=== PATIENT | female | born 1980 | race Caucasian/White ===

== ENCOUNTER 2025-08-14 17:21 | Emergency (ER) | payer SELFPAY ==
[2025-08-14 17:25] VITALS: BP 148/86; PULSE 73; RESP 14; TEMP 36.7; O2SAT 97; BMI 25.2
--- NOTE | 2025-08-14 17:46 | ED_ITS ---
HPI - General Adult 2 General: Chief complaint: Upper Respiratory Infection Stated complaint: cp, sob, wekaness, n/v/f Time Seen by Provider: 08/14/25 17:40 Source: patient Mode of arrival: ambulatory Limitations: no limitations History of Present Illness: Patient is a 45-year-old female presents to ED today with a complaint of fever, chills, headache, body aches, nausea, vomiting, diarrhea, chest congestion. She states all of her symptoms started after receiving a flu shot. She arrives with normal vital signs. No rash. She is not complaining of neck pain/stiffness. She does tell me all my kids are sick with the same thing . Severity: moderate Relieving factors: none Exacerbating factors: none Associated symptoms: Reports headache(s) and vomiting; Deny chest pain or rash Treatments prior to arrival: none Related Data Allergies Allergy/AdvReac Type Severity Reaction Status Date / Time Sulfa (Sulfonamide Allergy ALGY-Anaphy Verified 08/14/25 17:29 Antibiotics) laxis Review of Systems 2 Const: Reports: fever(s), chills and body aches Eyes: Denies: change in vision, blurry vision, eye discomfort or eye discharge ENMT: Reports: nasal congestion and sinus pain; Denies: throat pain or odynophagia Card: Denies: chest pain Resp: Reports: non-productive cough and chest congestion GI: Reports: vomiting and diarrhea; Denies: abdominal pain : Denies: flank pain, dysuria or hematuria Musc: Reports: other (body aches); Denies: neck pain, back pain, extremity pain, extremity swelling, joint pain, joint swelling or joint redness Skin/Breast: Denies: rash Neuro: Reports: headache(s); Denies: numbness in extremities, weakness in extremities or sensory changes Physical Exam 2 Const: COMMON NORMALS: no acute distress, average body habitus, patient oriented x3, no limitations, healthy appearing, alert and well nourished G ENERAL APPEARANCE: cooperative ORIENTATION/CONSCIOUSNESS: Yes awake, Yes oriented to person, Yes oriented to place and Yes oriented to time HENMT: COMMON NORMALS: normocephalic, atraumatic, hearing grossly normal bilaterally, external ears normal, EAC's normal, TM's normal bilaterally, Normal external nose present, Normal nasal mucous membranes and turbinates present, moist oral mucous membranes and oropharynx normal HEAD & SCALP: normal to inspection, normocephalic and atraumatic FACE & SINUS: normal facial exam and sinuses nontender NOSE: Normal external nose present and Normal nasal mucous membranes and turbinates present EXTERNAL EAR: Yes external ears normal E XTERNAL AUDITORY CANAL: EAC's normal TYMPANIC MEMBRANE: TM's normal bilaterally MOUTH: Normal oral and palatal mucosa present, lip normal, tongue normal and Normal salivary glands and ducts present THROAT: posterior oropharynx normal, tonsils normal and uvula midline Eye: COMMON NORMALS: Equal, round and reactive pupils present, EOMs intact bilaterally and conjunctivae normal CONJUNCTIVA: Yes conjunctivae normal P UPIL: Yes Equal, round and reactive pupils present Neck/C-Spine: COMMON NORMALS: no lymphadenopathy Resp: COMMON NORMALS: normal respiratory effort and clear to auscultation bilaterally AUSCULTATION: clear to auscultation bilaterally Cardio: COMMON NORMALS: regular rate and regular rhythm RATE: regular rate RHYTHM: regular rhythm GI: COMMON NORMALS: Normal to inspection, nondistended, normoactive bowel sounds present, Soft to palpation, non-tender, No hepatosplenomegaly present and no masses PALPATION: Yes Soft to palpation and Yes No hepatosplenomegaly present : COMMON NORMALS: Yes no CVA tenderness BLADDER/KIDNEY EXAM: Yes no CVA tenderness Back/Pelvis: COMMON NORMALS: no CVA tenderness Extremity: GENERAL: Yes normal exam except as noted Neuro: COMMON NORMALS: patient oriented x3, moves all extremities, no focal motor deficits and no sensory deficits noted SENSORIUM/ORIENTATION: Yes alert, Yes oriented to person, Yes oriented to place and Yes oriented to time Skin: COMMON NORMALS: no rashes or lesions noted GENERAL SKIN EXAM: no rashes or lesions noted Course 2 Vital Signs: Vital signs: Vital Signs Temperature 98.0 F 08/14/25 17:25 Pulse Rate 67 08/14/25 18:23 Respiratory Rate 14 08/14/25 17:25 Blood Pressure 127/71 08/14/25 18:23 Pulse Oximetry 96 08/14/25 18:23 Oxygen Delivery Me thod Room Air 08/14/25 18:23 MDM - General Adult Medical Decision Making Patient here for viral-like symptoms. She states several of her children are sick with identical symptoms. Vital signs are stable. Blood work is unremarkable. She has a normal CXR. COVID/flu/RSV obtained and negative. Patient will be allowed discharge. Turn to ED precautions discussed. Medical Records I reviewed the patient's medical records. Lab Data I reviewed the patient's lab results. 08/14/25 18:08 08/14/25 18:08 Radiology Impressions Chest X-Ray 08/14/25 17:54 IMPRESSION: No acute findings. Laboratory Results WBC 8.01 10^3/uL (3.29-11.43) 08/14/25 18:08 RBC 4.40 10^6/uL (3.85-5.65) 08/14/25 18:08 Hgb 12.90 g/dL (11.27-16.99) 08/14/25 18:08 Hct 39.3 % (36-47) 08/14/25 18:08 MCV 89.3 fl (85-98) 08/14/25 18:08 MCH 29.3 pg (27-33) 08/14/25 18:08 MCHC 32.8 g/dL (30-55) 08/14/25 18:08 RDW 13.0 % (12.1-15.1) 08/14/25 18:08 Plt Count 280 10^3/cmm (157-399) 08/14/25 18:08 MPV 9.8 fL (7.4-10.4) 08/14/25 18:08 Neut % (Auto) 55.0 % 08/14/25 18:08 Lymph % (Auto) 35.1 % 08/14/25 18:08 [place] % (Auto) 7.9 % 08/14/25 18:08 Eos % (Auto) 1.4 % 08/14/25 18:08 Baso % (Auto) 0.4 % 08/14/25 18:08 Neut # (Auto) 4.41 10^3/uL (1.8-7.7) 08/14/25 18:08 Lymph # (Auto) 2.8 10^3/uL (0.8-4.8) 08/14/25 18:08 [place] # (Auto) 0.6 10^3/uL (0.2-0.9) 08/14/25 18:08 Eos # (Auto) 0.1 10^3/uL (0.0-0.8) 08/14/25 18:08 Baso # (Auto) 0.0 10^3/uL (0.0-0.1) 08/14/25 18:08 Nucleated RBC % (auto) 0 % 08/14/25 18:08 Nucleated RBCs # 0.0 /100WBC 08/14/25 18:08 Sodium 142 mmol/L (136-145) 08/14/25 18:08 Potassium 4.1 mmol/L (3.5-5.1) 08/14/25 18:08 Chloride 105 mmol/L (98-107) 08/14/25 18:08 Carbon Dioxide 25 mmol/L (22-29) 08/14/25 18:08 Anion Gap 16.1 (5-19) 08/14/25 18:08 BUN 12 mg/dL (6-20) 08/14/25 18:08 Creatinine 0.7 mg/dL (0.5-0.9) 08/14/25 18:08 GFR Calculation 91.3 mL/min (90-130) 08/14/25 18:08 Glucose 99 mg/dL (65-115) 08/14/25 18:08 Calculated Osmolality 294 mOsm/kg (285-295) 08/14/25 18:08 Calcium 9.8 mg/dL (8.5-10.5) 08/14/25 18:08 Total Bilirubin 0.3 mg/dL (0.15-1.2) 08/14/25 18:08 AST 21 U/L (0-32) 08/14/25 18:08 ALT 13 U/L (0-33) 08/14/25 18:08 Alkaline Phosphatase 55 U/L (35-105) 08/14/25 18:08 Total Protein 8.0 g/dL (6.6-8.7) 08/14/25 18:08 Albumin 4.3 g/dL (3.5-5.2) 08/14/25 18:08 Globulin 3.7 g/dL (1.3-4.6) 08/14/25 18:08 Influenza A (PCR) Negative (Negative) 08/14/25 18:26 Influenza Type B (PCR) Negative (Negative) 08/14/25 18:26 RSV (PCR) Negative (Negative) 08/14/25 18:26 SARS-CoV-2 (PCR) Negative (Negative) 08/14/25 18:26 All radiology interpretation(s) finalized by discharge Discharge Plan Discharge Patient Disposition: Home Clinical Impression: Viral illness Condition: Stable Discharge Orders: Discharge ED (Routine); Ordered 08/14/25 Ordered By: Frances Frederick Patient Instructions: Viral Syndrome (ED), Patient Portal & [facility]ando Instructions Stand Alone Forms: Work/School Release Print Language: Chilean Coding Level of Care Code ED Driver'S License Examiner for Daniel Carver
--- NOTE | 2025-08-14 17:54 | XRR_ITS ---
PROCEDURE INFORMATION: Exam: XR Chest Exam date and time: 08/14/2025 5:57 PM Age: 45 years old Clinical indication: Cough; Additional info: Cough/congestion TECHNIQUE: Imaging protocol: Radiologic exam of the chest. Views: 1 view. COMPARISON: No relevant prior studies available. FINDINGS: Lungs: Unremarkable. No consolidation. Pleural spaces: Unremarkable. No pleural effusion. No pneumothorax. Heart/Mediastinum: Unremarkable. No cardiomegaly. Bones/joints: Unremarkable. XR/XR chest 1V portable [id number] IMPRESSION: No acute findings.
[2025-08-14 18:23] VITALS: BP 127/71; PULSE 67; O2SAT 96
[2025-08-14 18:37] LABS: Hematocrit 39.3 % (36-47); Hemoglobin 12.90 g/dL (11.27-16.99); Mean Corpuscular HGB Conc 32.8 g/dL (30-55); Mean Corpuscular Hemoglobin 29.3 pg (27-33); Mean Corpuscular Volume 89.3 fl (85-98); Nucleated Red Blood Cells % 0 %; Platelet Count 280 10^3/cmm (157-399); Red Blood Count 4.40 10^6/uL (3.85-5.65); White Blood Count 8.01 10^3/uL (3.29-11.43)
[2025-08-14 18:49] LABS: Alanine Aminotransferase 13 U/L (0-33); Albumin Level 4.3 g/dL (3.5-5.2); Alkaline Phosphatase 55 U/L (35-105); Aspartate Amino Transferase 21 U/L (0-32); Blood Urea Nitrogen 12 mg/dL (6-20); Calcium 9.8 mg/dL (8.5-10.5); Carbon Dioxide 25 mmol/L (22-29); Chloride 105 mmol/L (98-107); Creatinine Clr Calc Pharmacy 115.7336; Globulin 3.7 g/dL (1.3-4.6); Glucose 99 mg/dL (65-115); Osmolality Calculated 294 mOsm/kg (285-295); Sodium 142 mmol/L (136-145); Total Protein 8.0 g/dL (6.6-8.7)
[2025-08-14 19:22] LABS: Anion Gap 16.1 (5-19); Potassium 4.1 mmol/L (3.5-5.1)
[2025-08-14 19:44] LABS: Respiratory Syncytial Virus Ce NEGATIVE (Negative); SARS-CoV-2 PCR NEGATIVE (Negative)
== END 2025-08-14 20:06 | disposition home or self-care (01) ==
PROVIDERS: Emergency Provider Physician Assistant
DX: B34.9 Viral infection, unspecified (principal); Z11.52 Encounter for screening for COVID-19
CPT/HCPCS: 36415; 71045; 80053; 85025; 87637; 99284; Q0162

== ENCOUNTER 2025-09-28 05:50 | Emergency (ER) | payer SELFPAY ==
--- OUTSIDE RECORDS SUMMARY | 2025-09-28 05:58 | XMS_ITS | Patient Health Record ---
Author Organization [facility], [facility] Address [address], [place] [id number] Phone [phone] Care Team Providers Care Cage Manager Name Role Phone ARSALAN MAMADOU MONTALVO Primary Care Provider [phone] Allergies Allergen (clinical drug ingredient) Drug/Non Drug Allergy documented on EMR Reaction Allergy Type Onset Date Status Substance with sulfonamide structure and antibacterial mechanism of action (substance) Sulfa Antibiotics Unknown Drug Allergy Active Reason For Referral No Information Medications Medication SIG (Take, Route, Frequency, Duration) Notes Start Date End Date Diagnosis (ICD Code) Status Ambien Active SEROquel Active hydrOXYzine HCl Active Depakote Active Gabapentin Active Depakene Not-Taking/ PRN Amoxicillin Not-Taking/ PRN Penicillin G Potassium Active Social History Sex Observation Social History Observation Description Sex Observation Female Sexual Orientation Social History Observation Description Sexual Orientation Straight or heterose xual Gender Identity Social History Observation Description Gender Identity Female Plan Of Treatment No Information Insurance Providers Payer Name Payer Address Payer Phone Subscriber Number Group Number Insured Name Patient Relationship to Insured Coverage Start Date Coverage End Date [facility] Dental Medicaid [address] [place] [address] [id number] Vivi Arce Self - patient is the insured Medical (General) History Medical History History ICD Code bipolar disorder psuedo kedaroa (traumatic brain injury) rheumatoid arthritis
--- OUTSIDE RECORDS SUMMARY | 2025-09-28 05:58 | XMS_ITS | Patient Health Record ---
Author Organization [facility] Address [address] [place] [address] Care Team Providers Care Bulldozer Engineer Name Role Phone Hector Gorman Unavailable [phone] Vance Cutler Jr Unavailable [phone] Allergies Allergen (clinical drug ingredient) Drug/Non Drug Allergy documented on EMR Reaction Allergy Type Onset Date Status sulfamethoxazole / trimethoprim Bactrim anaphylaxis Drug Allergy Active Substance with sulfonamide structure and antibacterial mechanism of action (substance) Sulfa Antibiotics anaphylaxis Drug Allergy Active Reason For Referral No Information Medications Medication SIG (Take, Route, Frequency, Duration) Notes Start Date End Date Status traZODone HCl 100 MG Tablet 1 tablet at bedtime Orally Once a day; Duration: 30 day(s) Active SEROquel 400 MG Tablet 2 tablets Orally at bedtime Active Bentyl 10 MG/ML Solution 1 mL Intramuscu lar Four times a day; Duration: 2 day(s) Active Levothyroxine Sodium 50 MCG Tablet 1 tablet in the morning on an empty stomach Orally Once a day; Duration: 30 day(s) Active Nuedexta 20-10 MG Capsule 1 capsule Oral ly every 12 hrs; Duration: 30 day(s) Active Depakote 500 MG Tablet Delayed Release 1 tablet Orally Twice a day; Duration: 30 day(s) Active Cyclobenzaprine HCl 10 MG Tablet 1 tablet at bedtime as needed Orally Once a day; Duration: 30 day(s) Active Gabapentin 300 MG Capsule 1 capsule Oral ly three times a day Active Immunizations Vaccine Route Administration Date Status Comme nts Right L3-4, L4-5, L5-S1 face t joint diagnostic medial branch block Unknown 04/14/2024 Others Social History Social History Social History Social Info Question Answer Notes ETOH Did you have a drink containing alcohol i n the past year? No Points 0 Interpretation Negative Drug or medication: Tobacco Yes Age at last use: present Amount (per day or week) 1/2 pack per day Route: Oral Alcohol (e.g. beer, wine, liquor) No Marijuana (inc. Spice, K2) Yes Age at last use: present Amount (per day or week): weekly Route: Oral Cocaine or crack No Methamphetamine (meth) No Hallucinogens (e.g. LSD, mushrooms, peyote) No Club Drugs (e.g. MDA, MDEA, Ecstasy, Racheal, Cecy) No Opioids (narcotics, pain meds, including Tramado l) No Benzodiazepines (e.g. Xanax, Ativan, Valium) No Sleeping Pills (e.g. Ambien, Lunesta, Restoril) No Amphetamines (e.g. Adderall, Ritalin) No Barbiturates (e.g. Fioricet, Fiorinal) No Suboxone/Subutex No Inhalants (e.g. nitrous, whippets) No Have you ever been discharge d from a physician or other practitioners care for any reason? 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 [employer] Recreational drug use yes Marijuana Exercise yes New since last visit no Marital Status yes Education yes high school grad Children yes Problems Problem Type SNOMED Code ICD Code Onset Dates Problem Status W/U Status Risk Notes Problem Solitary sacroiliitis (839422212) Sacroiliitis, not elsewhere classified (M46.1) Active confirmed Problem Lumbosacral spondylosis without myelopathy (57974896) Spondylosis without myelopathy or radiculopathy, lumbar region (M47.816) Active confirmed Problem Impingement syndrome of shoulder region (712679455) Impingement syndrome of right shoulder (M75.41) Active confirmed Plan Of Treatment Pending Test Test Name Order Date MRI : Lumbosacral Spine 04/14/2024 Insurance Providers Payer Name Payer Address Payer Phone Subscriber Number Group Number Insured Name Patient Relationship to Insured Coverage Start Date Coverage End Date [employer] [address] [address] [place] [address] [id number] Vivi Bass Self - patient is the insured Medical (General) History Medical History History ICD Code BiPolar disorder Anxiety/Depression Hypothyroidism Surgical History Surgery Date(Month/Year) Cholecystectomy Hysterectomy Section x 4 Hospitalization History Reason Date(Month/Year) with surgeries
[2025-09-28 06:11] VITALS: BP 121/79; PULSE 72; RESP 16; TEMP 36.4; O2SAT 98; BMI 29.2
--- NOTE | 2025-09-28 07:31 | CT_ITS ---
WS: [id number] CT ABDOMEN AND PELVIS NONCONTRAST HISTORY: r flank pain TECHNIQUE: Imaging performed through the abdomen and pelvis. Coronal and sagittal reformats are submitted. All CT scans at [facility] use at least one of these dose optimization techniques: automated exposure control; mA and/or kV adjustment per patient size (includes targeted exams where dose is matched to clinical indication); or iterative reconstruction. DLP: 818.01 mGy.cm COMPARISON: None available. Lower thorax: Lung bases are clear. Visualized heart is normal. No hiatal hernia. Liver: Normal size liver with granulomata. Gallbladder: Prior cholecystectomy. Pancreas: Normal size and attenuation. Normal pancreatic duct. No pancreatitis or mass. Spleen: Normal size spleen with granulomata. Adrenal glands: Normal. No mass. Right kidney: No significant perinephric stranding. Very mild dilatation of the RIGHT renal pelvis and proximal ureter secondary to a 3 mm calcification in the mid ureter at the level of L3. Distal ureter is normal caliber. Left kidney: Normal size kidney with no hydronephrosis. Nonobstructing 2 mm calcification in the lower pole. Normal size LEFT ureter. Aorta: Mild atherosclerosis abdominal aorta with no aneurysm. No free fluid, intraperitoneal air or significant lymphadenopathy. GI tract: Normal noncontrast imaging of the stomach, small bowel and colon. No obstruction or wall thickening. Normal appendix. Abdominal wall: Small umbilical hernia contains fat only. Pelvis: Prior hysterectomy. No free fluid in the pelvis. No adenopathy. Urinary bladder is not distended. Osseous structures: Sclerotic bone island in the RIGHT inferior pubic rami. CT/CT kidney stone [id number] IMPRESSION: 1. Minimal RIGHT hydronephrosis secondary to a 3 mm calcification in the mid u reter. 2. Nonobstructing 2 mm calcification lower pole LEFT kidney. 3. Normal appendix. 4. Prior granulomatous disease. 5. Small fat-containing umbilical hernia.
--- NOTE | 2025-09-28 07:32 | W.ED.FEMALGU ---
HPI - Female Genitourinary General: Chief complaint: Urogenital-Female Stated complaint: kidney flank pain cramp into groin Time Seen by Provider: 09/28/25 07:28 Source: patient Mode of arrival: ambulatory Limitations: no limitations History of Present Illness: 45-year-old female states she had right flank pain that started yesterday it worsened this morning at 3 AM. States pains been sharp in nature rates a 7 out of 10 and seems to come in waves she states she has had some vomiting with the pain. She has had hematuria as well. States she had a kidney stone 5 years ago and this feels similar she denies any pain with palpation denies any fevers Related Data Previous Rx's ?Medication ?Instructions ?Recorded hydrocodone 5 mg-acetaminophen 325 1 tab PO Q8H PRN pain #14 tabs 09/28/25 mg tablet ondansetron 4 mg disintegrating 4 mg PO Q6H PRN nausea and 09/28/25 tablet vomiting #14 tabs Allergies Allergy/AdvReac Type Severity Reaction Status Date / Time Sulfa (Sulfonamide Allergy ALGY-Anaphy Verified 08/14/25 17:29 Antibiotics) laxis Review of Systems : Reports: flank pain Physical Exam Const: COMMON NORMALS: no acute distress, patient oriented x3 and healthy appearing HENMT: COMMON NORMALS: normocephalic and atraumatic HEAD & SCALP: normocephalic and atraumatic Neck/C-Spine: COMMON NORMALS: full ROM and supple Chest: COMMONS NORMALS: normal inspection of the chest Resp: COMMON NORMALS: normal respiratory effort, No retractions, No use of accessory muscles and clear to auscultation bilaterally AUSCULTATION: clear to auscultation bilaterally Cardio: COMMON NORMALS: regular rate, regular rhythm and No murmurs present (Cardio) RATE: regular rate RHYTHM: regular rhythm GI: COMMON NORMALS: Normal to inspection, nondistended, normoactive bowel sounds present, Soft to palpation, non-tender and no masses PALPATION: Yes Soft to palpation Extremity: COMMON NORMALS: normal to inspection and full ROM Neuro: COMMON NORMALS: patient oriented x3, moves all extremities and no focal motor deficits Psych: COMMON NORMALS: mental status grossly normal, Normal thought process present and cooperative THOUGHT PROCESS: Normal thought process present Skin: COMMON NORMALS: no rashes or lesions noted and no wounds GENERAL SKIN EXAM: no rashes or lesions noted Course Vital Signs: Vital signs: Vital Signs Temperature 97.5 F L 09/28/25 06:11 Pulse Rate 66 09/28/25 08:24 Respiratory Rate 20 H 09/28/25 08:18 Blood Pressure 103/67 09/28/25 08:24 Pulse Oximetry 96 09/28/25 08:24 Oxygen Delivery Me thod Room Air 09/28/25 06:11 MDM - Female Medical Decision Making 45-year-old female concerns right sided flank pain differential includes lumbar pain, kidney stone, pyelonephritis. Lab work showed no significant abnormality no signs of UTI. CT does show a right sided kidney stone. A kidney stone is likely causing her pain and her pain has resolved here will prescribe her Zofran and hydrocodone for home she is stable for discharge follow-up with PCP return if worsening. Medical Records I reviewed the patient's medical records. Lab Data I reviewed the patient's lab results. 09/28/25 07:35 09/28/25 07:35 Radiology Impressions Abdomen/Pelvis CT 09/28/25 07:31 IMPRESSION: 1. Minimal RIGHT hydronephrosis secondary to a 3 mm calcification in the mid ureter. 2. Nonobstructing 2 mm calcification lower pole LEFT kidney. 3. Normal appendix. 4. Prior granulomatous disease. 5. Small fat-containing umbilical hernia. Laboratory Results WBC 7.69 10^3/uL (3.29-11.43) 09/28/25 07:35 RBC 4.73 10^6/uL (3.85-5.65) 09/28/25 07:35 Hgb 13.90 g/dL (11.27-16.99) 09/28/25 07:35 Hct 43.7 % (36-47) 09/28/25 07:35 MCV 92.4 fl (85-98) 09/28/25 07:35 MCH 29.4 pg (27-33) 09/28/25 07:35 MCHC 31.8 g/dL (30-55) 09/28/25 07:35 RDW 13.3 % (12.1-15.1) 09/28/25 07:35 Plt Count 289 10^3/cmm (157-399) 09/28/25 07:35 MPV 9.6 fL (7.4-10.4) 09/28/25 07:35 Neut % (Auto) 48.6 % 09/28/25 07:35 Lymph % (Auto) 36.0 % 09/28/25 07:35 [place] % (Auto) 8.6 % 09/28/25 07:35 Eos % (Auto) 6.0 % 09/28/25 07:35 Baso % (Auto) 0.5 % 09/28/25 07:35 Neut # (Auto) 3.74 10^3/uL (1.8-7.7) 09/28/25 07:35 Lymph # (Auto) 2.8 10^3/uL (0.8-4.8) 09/28/25 07:35 [place] # (Auto) 0.7 10^3/uL (0.2-0.9) 09/28/25 07:35 Eos # (Auto) 0.5 10^3/uL (0.0-0.8) 09/28/25 07:35 Baso # (Auto) 0.0 10^3/uL (0.0-0.1) 09/28/25 07:35 Nucleated RBC % (auto) 0 % 09/28/25 07:35 Nucleated RBCs # 0.0 /100WBC 09/28/25 07:35 Sodium 139 mmol/L (136-145) 09/28/25 07:35 Potassium 4.1 mmol/L (3.5-5.1) 09/28/25 07:35 Chloride 103 mmol/L (98-107) 09/28/25 07:35 Carbon Dioxide 25 mmol/L (22-29) 09/28/25 07:35 Anion Gap 15.1 (5-19) 09/28/25 07:35 BUN 11 mg/dL (6-20) 09/28/25 07:35 Creatinine 0.9 mg/dL (0.5-0.9) 09/28/25 07:35 GFR Calculation 68.3 mL/min (90-130) L 09/28/25 07:35 Glucose 106 mg/dL (65-115) 09/28/25 07:35 Calculated Osmolality 288 mOsm/kg (285-295) 09/28/25 07:35 Calcium 9.5 mg/dL (8.5-10.5) 09/28/25 07:35 Total Bilirubin 0.3 mg/dL (0.15-1.2) 09/28/25 07:35 AST 22 U/L (0-32) 09/28/25 07:35 ALT 13 U/L (0-33) 09/28/25 07:35 Alkaline Phosphatase 56 U/L (35-105) 09/28/25 07:35 Total Protein 7.7 g/dL (6.6-8.7) 09/28/25 07:35 Albumin 4.5 g/dL (3.5-5.2) 09/28/25 07:35 Globulin 3.2 g/dL (1.3-4.6) 09/28/25 07:35 Lipase 43 U/L (13-60) 09/28/25 07:35 Urine Color Red (Yellow) A 09/28/25 07:41 Urine Appearance Turbid (CLEAR) A 09/28/25 07:41 Urine pH 5.5 (5-7) 09/28/25 07:41 Ur Specific [place] 1.023 (1.005-1.030) 09/28/25 07:41 Urine Protein 1+ (Negative) A 09/28/25 07:41 Urine Glucose (UA) Negative (Normal) 09/28/25 07:41 Urine Ketones Negative (Negative) 09/28/25 07:41 Urine Blood 3+ (Negative) A 09/28/25 07:41 Urine Nitrate Negative (Negative) 09/28/25 07:41 Urine Bilirubin Negative (Negative) 09/28/25 07:41 Urine Urobilinogen 1.0 mg/dL (Negative) 09/28/25 07:41 Ur Leukocyte Esterase 1+ (Negative) A 09/28/25 07:41 Urine RBC >100 /hpf (0-2) H 09/28/25 07:41 Urine WBC 6-10 /hpf (0-5) 09/28/25 07:41 Ur Squamous Epith Cells 0-5 /hpf (0-5) 09/28/25 07:41 Amorphous Sediment Not Reportable 09/28/25 07:41 Urine Bacteria None seen /hpf (NONE) 09/28/25 07:41 Hyaline Casts 3.48 /lpf 09/28/25 07:41 All radiology interpretation(s) finalized by discharge Discharge Plan Discharge Patient Disposition: Home Clinical Impression: Kidney stone Condition: Stable Prescriptions: New hydrocodone-acetaminophen 5-325 mg tablet 1 tab PO Q8H PRN (Reason: pain) Qty: 14 0RF ondansetron 4 mg tablet,disintegrating 4 mg PO Q6H PRN (Reason: nausea and vomiting) Qty: 14 0RF Discharge Orders: Discharge ED (Routine); Ordered 09/28/25 Ordered By: Zainab Sheets Discharge Diet: Advance as tolerated Discharge Activity: Resume usual activity Patient Instructions: Kidney Stones (ED), Opioid Safety Print Language: Bengali Coding Level of Care Code ED Health Safety Engineer for Daniel Carver
[2025-09-28 07:46] LABS: Hematocrit 43.7 % (36-47); Hemoglobin 13.90 g/dL (11.27-16.99); Mean Corpuscular HGB Conc 31.8 g/dL (30-55); Mean Corpuscular Hemoglobin 29.4 pg (27-33); Mean Corpuscular Volume 92.4 fl (85-98); Nucleated Red Blood Cells % 0 %; Platelet Count 289 10^3/cmm (157-399); Red Blood Count 4.73 10^6/uL (3.85-5.65); White Blood Count 7.69 10^3/uL (3.29-11.43)
[2025-09-28 07:51] LABS: Glucose Urine UA Negative (Normal); Nitrate Urine Negative (Negative); Specific Gravity, Urine 1.023 (1.005-1.030)
[2025-09-28 07:53] LABS: Add Urine Microscopic? YES
[2025-09-28 08:00] VITALS: PULSE 88; O2SAT 95
[2025-09-28 08:02] LABS: Alanine Aminotransferase 13 U/L (0-33); Albumin Level 4.5 g/dL (3.5-5.2); Alkaline Phosphatase 56 U/L (35-105); Blood Urea Nitrogen 11 mg/dL (6-20); Calcium 9.5 mg/dL (8.5-10.5); Carbon Dioxide 25 mmol/L (22-29); Chloride 103 mmol/L (98-107); Globulin 3.2 g/dL (1.3-4.6); Glucose 106 mg/dL (65-115); Lipase 43 U/L (13-60); Osmolality Calculated 288 mOsm/kg (285-295); Sodium 139 mmol/L (136-145); Total Protein 7.7 g/dL (6.6-8.7)
[2025-09-28 08:04] LABS: Anion Gap 15.1 (5-19); Aspartate Amino Transferase 22 U/L (0-32); Potassium 4.1 mmol/L (3.5-5.1)
[2025-09-28 08:18] VITALS: RESP 20; O2SAT 99
[2025-09-28] MEDS: ondansetron 2 mg/ML SDV 2 mL 4 MG IVP (08:18)
[2025-09-28] MEDS: morphine 4 mg/mL SDV 1 mL IVP (08:18)
[2025-09-28 08:24] VITALS: BP 103/67; PULSE 66; O2SAT 96
[2025-09-28 08:42] VITALS: BP 98/77; PULSE 55; O2SAT 97
[2025-09-28] MEDS: HYDROcodone-acetaminophen 7.5-325 mg Tablet 1 TAB PO (09:40)
== END 2025-09-28 09:41 | disposition home or self-care (01) ==
PROVIDERS: Emergency Provider Emergency Medicine
DX: N20.0 Calculus of kidney (principal); Z87.442 Personal history of urinary calculi
CPT/HCPCS: 36415; 74176; 80053; 81001; 83690; 85025; 87086; 96361; 96374; 96375; 99285; J2270; J2405; J7030; J9999